=== PATIENT | male | born 1960 | race Caucasian/White ===

== ENCOUNTER 2017-09-04 09:45 | Emergency (ER) | payer OTHER ==
[~2017-09-04] VITALS: Ht 175.3 cm; Wt 92.0 kg
[2017-09-04 09:48] VITALS: BP 179/111; PULSE 80; RESP 16; TEMP 97.8; O2SAT 97
[2017-09-04] MEDS ORDERED: ONDANSETRON HCL 4 MG/2 ML VIAL IVP ONE (10:15)
[2017-09-04] MEDS ORDERED: KETOROLAC TROMETHAMINE 30 MG/ML (IVP) VIAL IVP ONE (10:15)
[2017-09-04] MEDS ORDERED: MORPHINE SULFATE 4 MG/ML INJ IV PUSH ONE (10:15)
[2017-09-04] MEDS ORDERED: SODIUM CHLORIDE 0.9% FLUSH 10 ML FLUSH IV FLUSH PRN (10:15)
[2017-09-04] MEDS ORDERED: SODIUM CHLOR 0.9% 1000 ML INJ 1,000 ML IV SCH (10:15)
--- NOTE | 2017-09-04 10:23 | PD ---
HPI Chief Complaint: Flank/Kidney Pain Time Seen by Provider: 09:59 Travel History International Travel<30 days: No Contact w/Intl Traveler<30days: No Traveled to known affect area: No History of Present Illness HPI The patient is a 57-year-old male who presents emergency department for right flank pain. The patient developed right flank pain this morning that radiates from the right mid back to the right flank and occasionally down to the right lower aspect of the abdomen. He does note nausea and vomiting associated with the pain but denies any diarrhea. He denies any dysuria, frequency, urgency, or hematuria. He denies any precipitating factors, denies any previous history of abdominal surgeries or history of nephrolithiasis. Intensive moderate without any alleviating or exacerbating factors. PFSH Past Medical History Narrative Medical Hyperlipidemia High Cholesterol: Yes Past Surgical History Narrative Surgical Tonsillectomy, surgery second digit right hand Joint Replacement: Yes (right knee, right index finger) Social History Alcohol Use: Yes (whisky nightly) Tobacco Use: No Substance Use: No Allergies-Medications (Allergen,Severity, Reaction): Coded Allergies: No Known Allergies (Unverified , 09/04/17) Reported Meds & Prescriptions Reported Meds & Active Scripts Active Reported Atorvastatin (Atorvastatin Calcium) 20 Mg Tab 20 Mg PO HS Meloxicam 15 Mg Tab 15 Mg PO DAILY Review of Systems Except as stated in HPI: all other systems reviewed are Neg General / Constitutional: No: Fever Cardiovascular: No: Chest Pain or Discomfort Respiratory: No: Shortness of Breath Gastrointestinal: Positive: Nausea, Vomiting, Abdominal Pain, No: Diarrhea Genitourinary: Positive: Flank Pain, No: Urgency, Frequency, Dysuria, Hematuria Skin: No Rash Physical Exam Narrative GENERAL: Awake, alert, pleasant 57-year-old male who appears his stated age and is in no acute respiratory distress. SKIN: Focused skin assessment warm/dry. Multiple tattoos noted. HEAD: Atraumatic. Normocephalic. EYES: Pupils equal and round. No scleral icterus. No injection or drainage. ENT: No nasal bleeding or discharge. Mucous membranes pink and moist. NECK: Trachea midline. No JVD. CARDIOVASCULAR: Regular rate and rhythm. No murmur appreciated. RESPIRATORY: No accessory muscle use. Clear to auscultation. Breath sounds equal bilaterally. GASTROINTESTINAL: Abdomen soft, minimal right lower quadrant and right flank tenderness. Back: No CVA tenderness. MUSCULOSKELETAL: No obvious deformities. No clubbing. No cyanosis. No edema. NEUROLOGICAL: Awake and alert. No obvious cranial nerve deficits. Motor grossly within normal limits. Normal speech. PSYCHIATRIC: Appropriate mood and affect; insight and judgment normal. Data Data Last Documented VS Vital Signs Date Time Temp Pulse Resp B/P (MAP) Pulse Ox O2 Delivery O2 Flow Rate FiO2 09/04/17 09:48 97.8 80 16 179/111 (133) 97 Orders Orders Complete Blood Count With Diff (09/04/17 10:15) Comprehensive Metabolic Panel (09/04/17 10:15) Lipase (09/04/17 10:15) Urinalysis - C+S If Indicated (09/04/17 10:15) Ct Abd/Pel W/O Iv Contrast (09/04/17 10:15) Iv Access Insert/Monitor (09/04/17 10:15) Ecg Monitoring (09/04/17 10:15) Oximetry (09/04/17 10:15) Morphine Inj (Morphine Inj) (09/04/17 10:15) Ondansetron Inj (Zofran Inj) (09/04/17 10:15) Sodium Chlor 0.9% 1000 Ml Inj (Ns 1000 M (09/04/17 10:15) Sodium Chloride 0.9% Flush (Ns Flush) (09/04/17 10:15) Ketorolac Inj (Toradol Inj) (09/04/17 10:15) Labs Laboratory Tests Test 09/04/17 10:11 09/04/17 11:15 White Blood Count 5.6 TH/MM3 Red Blood Count 4.95 MIL/MM3 Hemoglobin 15.0 GM/DL Hematocrit 42.2 % Mean Corpuscular Volume 85.3 FL Mean Corpuscular Hemoglobin 30.3 PG Mean Corpuscular Hemoglobin Concent 35.5 % Red Cell Distribution Width 14.0 % Platelet Count 229 TH/MM3 Mean Platelet Volume 6.9 FL Neutrophils (%) (Auto) 57.1 % Lymphocytes (%) (Auto) 26.1 % Monocytes (%) (Auto) 10.8 % Eosinophils (%) (Auto) 5.1 % Basophils (%) (Auto) 0.9 % Neutrophils # (Auto) 3.2 TH/MM3 Lymphocytes # (Auto) 1.5 TH/MM3 Monocytes # (Auto) 0.6 TH/MM3 Eosinophils # (Auto) 0.3 TH/MM3 Basophils # (Auto) 0.1 TH/MM3 CBC Comment DIFF FINAL Differential Comment Blood Urea Nitrogen 22 MG/DL Creatinine 0.98 MG/DL Random Glucose 104 MG/DL Total Protein 7.2 GM/DL Albumin 4.2 GM/DL Calcium Level 8.9 MG/DL Alkaline Phosphatase 62 U/L Aspartate Amino Transf (AST/SGOT) 25 U/L Alanine Aminotransferase (ALT/SGPT) 35 U/L Total Bilirubin 0.5 MG/DL Sodium Level 140 MEQ/L Potassium Level 3.8 MEQ/L Chloride Level 107 MEQ/L Carbon Dioxide Level 27.5 MEQ/L Anion Gap 6 MEQ/L Estimat Glomerular Filtration Rate 79 ML/MIN Lipase 516 U/L Urine Color YELLOW Urine Turbidity HAZY Urine pH 7.5 Urine Specific [place] 1.015 Urine Protein NEG mg/dL Urine Glucose (UA) NEG mg/dL Urine Ketones NEG mg/dL Urine Occult Blood SMALL Urine Nitrite NEG Urine Bilirubin NEG Urine Urobilinogen LESS THAN 2.0 MG/DL Urine Leukocyte Esterase NEG Urine RBC 17 /hpf Urine WBC 2 /hpf Urine Renal Epithelial Cells <1 /hpf Urine Amorphous Sediment FEW Urine Mucus FEW /lpf Microscopic Urinalysis Comment CULT NOT INDICATED MDM Medical Decision Making Medical Screen Exam Complete: Yes Emergency Medical Condition: Yes Medical Record Reviewed: Yes Interpretation(s) Laboratory Tests Test 09/04/17 10:11 09/04/17 11:15 White Blood Count 5.6 TH/MM3 Red Blood Count 4.95 MIL/MM3 Hemoglobin 15.0 GM/DL Hematocrit 42.2 % Mean Corpuscular Volume 85.3 FL Mean Corpuscular Hemoglobin 30.3 PG Mean Corpuscular Hemoglobin Concent 35.5 % Red Cell Distribution Width 14.0 % Platelet Count 229 TH/MM3 Mean Platelet Volume 6.9 FL Neutrophils (%) (Auto) 57.1 % Lymphocytes (%) (Auto) 26.1 % Monocytes (%) (Auto) 10.8 % Eosinophils (%) (Auto) 5.1 % Basophils (%) (Auto) 0.9 % Neutrophils # (Auto) 3.2 TH/MM3 Lymphocytes # (Auto) 1.5 TH/MM3 Monocytes # (Auto) 0.6 TH/MM3 Eosinophils # (Auto) 0.3 TH/MM3 Basophils # (Auto) 0.1 TH/MM3 CBC Comment DIFF FINAL Differential Comment Blood Urea Nitrogen 22 MG/DL Creatinine 0.98 MG/DL Random Glucose 104 MG/DL Total Protein 7.2 GM/DL Albumin 4.2 GM/DL Calcium Level 8.9 MG/DL Alkaline Phosphatase 62 U/L Aspartate Amino Transf (AST/SGOT) 25 U/L Alanine Aminotransferase (ALT/SGPT) 35 U/L Total Bilirubin 0.5 MG/DL Sodium Level 140 MEQ/L Potassium Level 3.8 MEQ/L Chloride Level 107 MEQ/L Carbon Dioxide Level 27.5 MEQ/L Anion Gap 6 MEQ/L Estimat Glomerular Filtration Rate 79 ML/MIN Lipase 516 U/L Urine Color YELLOW Urine Turbidity HAZY Urine pH 7.5 Urine Specific [place] 1.015 Urine Protein NEG mg/dL Urine Glucose (UA) NEG mg/dL Urine Ketones NEG mg/dL Urine Occult Blood SMALL Urine Nitrite NEG Urine Bilirubin NEG Urine Urobilinogen LESS THAN 2.0 MG/DL Urine Leukocyte Esterase NEG Urine RBC 17 /hpf Urine WBC 2 /hpf Urine Renal Epithelial Cells <1 /hpf Urine Amorphous Sediment FEW Urine Mucus FEW /lpf Microscopic Urinalysis Comment CULT NOT INDICATED CT the abdomen and pelvis reveals right sided obstructive uropathy with mild right hydronephrosis above a 5 mm x 3 mm calculus in the proximal right ureter. Differential Diagnosis Differential diagnoses includes nephrolithiasis, hydronephrosis, pyelonephritis , appendicitis, atypical cholecystitis, diverticulitis, testicular torsion. Narrative Course IV was established, labs are drawn and sent, and the patient was placed on cardiac telemetry monitoring and continuous pulse oximetry monitoring. The patient was administered morphine, Toradol, Zofran, and IV fluids. Noncontrast CT of the abdomen and pelvis was performed to evaluate for right nephrolithiasis. UA reveals 17 RBCs. Creatinine is normal. CT reveals right sided obstructive uropathy with mild right hydronephrosis above a 5 mm x 3 mm calculus in the proximal right ureter. The patient was reevaluated, his pain had improved. The patient we discharged him is advised to follow-up with urology. Pain medications as directed. Return if symptoms worsen or progress. He will be provided a strainer at discharge. Diagnosis Primary Impression: Nephrolithiasis Patient Instructions: General Instructions Additional Instructions: Please provide a strainer for the patient at discharge. Medications as directed. Please provide a patient a copy of his CT results and lab results at discharge. Follow-up with urology. Return if symptoms worsen or progress. Med/Other Pt SpecificInfo: Prescription(s) given Scripts Tamsulosin (Flomax) 0.4 Mg Cap 0.4 MG PO HS for Manage Prostate Problems for 7 Days, #7 CAP 0 Refills Prov: Vicente Funes MD 09/04/17 Ibuprofen (Ibuprofen) 600 Mg Tab 600 MG PO Q6H Y for Pain/Inflammation, #20 TAB 0 Refills Prov: Vicente Funes MD 09/04/17 Hydrocodone-Acetaminophen ([place]) 5 Mg-325 Mg Tab 1 TAB PO Q6H Y for PAIN, #15 TAB 0 Refills Prov: Vicente Funes MD 09/04/17 Disposition: 01 DISCHARGE HOME Condition: Stable Vicente Funes MD Sep 04, 2017 10:23
[2017-09-04] MEDS ORDERED: ATOR20TA15 PO (11:05)
[2017-09-04] MEDS ORDERED: MELO15TA20 PO (11:05)
[2017-09-04 11:20] LABS: AUTOMATED NEUTROPHIL # 3.2 TH/MM3 (1.8-7.7); BASOPHIL # 0.1 TH/MM3 (0-0.2); BASOPHIL % 0.9 % (0.0-2.0); EOSINOPHIL # 0.3 TH/MM3 (0-0.4); EOSINOPHIL % 5.1 % (0.0-4.0); HEMATOCRIT 42.2 % (39.0-51.0); LYMPH % 26.1 % (9.0-44.0); LYMPHOCYTE # 1.5 TH/MM3 (1.0-4.8); MEAN CELL VOLUME 85.3 FL (80.0-100.0); MEAN CORPUSCULAR HEMOGLOBIN 30.3 PG (27.0-34.0); MEAN CORPUSCULAR HGB CONC 35.5 % (32.0-36.0); MEAN PLATELET VOLUME 6.9 FL (7.0-11.0); MONO % 10.8 % (0.0-8.0); MONOCYTE # 0.6 TH/MM3 (0-0.9); NEUT % 57.1 % (16.0-70.0); PLATELET COUNT 229 TH/MM3 (150-450); RED BLOOD COUNT 4.95 MIL/MM3 (4.50-5.90); WHITE BLOOD COUNT 5.6 TH/MM3 (4.0-11.0)
[2017-09-04 11:47] LABS: ALBUMIN 4.2 GM/DL (3.4-5.0); ALT (GPT) 35 U/L (12-78); AST (GOT) 25 U/L (15-37); BICARBONATE 27.5 MEQ/L (21.0-32.0); BLOOD UREA NITROGEN 22 MG/DL (7-18); CALCIUM 8.9 MG/DL (8.5-10.1); CHLORIDE 107 MEQ/L (98-107); CREATININE 0.98 MG/DL (0.60-1.30); GLOMERULAR FILTRATION RATE 79 ML/MIN (>89); GLUCOSE,RANDOM 104 MG/DL (74-106); LIPASE 516 U/L (73-393); SODIUM (NA) 140 MEQ/L (136-145)
[2017-09-04 11:49] LABS: ALKALINE PHOSPHATASE 62 U/L (45-117); TOTAL BILIRUBIN ADULT 0.5 MG/DL (0.2-1.0); TOTAL PROTEIN 7.2 GM/DL (6.4-8.2)
[2017-09-04 12:02] LABS: AMORPHOUS SEDIMENT, URINE FEW; BILIRUBIN, URINE NEG (NEG); BLOOD, URINE SMALL (NEG); GLUCOSE,URINE NEG (NEG); KETONE, URINE NEG (NEG); MUCUS URINE FEW /lpf (OCC); NITRITE,URINE NEG (NEG); PH, URINE 7.5 (5.0-8.5); RENAL EPITHELIAL CELLS <1 /hpf; URINE COLOR YELLOW (YELLW/STRAW); URINE LEUKOCYTE ESTERASE NEG (NEG)
--- NOTE | 2017-09-04 12:14 | RADRPT ---
EXAM DATE/TIME: 09/04/2017 10:29 [facility] COMPARISON: No previous studies available for comparison. INDICATIONS : Right flank pain since last night . Evaluate for renal stone. ORAL CONTRAST: No oral contrast ingested. RADIATION DOSE: 15.23 CTDIvol (mGy) MEDICAL HISTORY : None SURGICAL HISTORY : None. ENCOUNTER: Initial ACUITY: 1 day PAIN SCALE: 4/10 LOCATION: Right flank TECHNIQUE: Volumetric scanning of the abdomen and pelvis was performed. Using automated exposure control and ad justment of the mA and/or kV according to patient size, radiation dose was kept as low as reasonably achievable to obtain optimal diagnostic quality images. DICOM format image data is available electro nically for review and comparison. FINDINGS: Mild dependent atelectasis of the lungs. No acute findings in the liver, spleen, adrenals or pancreas . There is mild right-sided hydronephrosis and obstructive uropathy above approximately 5 mm x 3 mm c alculus in the proximal right ureter. Additional bilateral renal cysts present. No left hydronephrosi s or obstructive uropathy. No bladder calculi. No bowel obstruction, free air or free fluid. No acute bony abnormality CONCLUSION: 1. Right-sided obstructive uropathy with mild right hydronephrosis above a 5 mm x 3 mm calculus in th e proximal right ureter. Angel Vicente MD on September 04, 2017 at 12:06 Board Certified Radiologist. This report was verified electronically.
[2017-09-04] MEDS ORDERED: NORC5TAB PO (12:36)
[2017-09-04] MEDS ORDERED: IBUP-232 PO (12:36)
[2017-09-04] MEDS ORDERED: TAMS5CAP PO (12:36)
== END 2017-09-04 13:03 | disposition home or self-care (01) ==
LOC: NEPE 09:45
DX: N13.2 Hydronephrosis with renal and ureteral calculous obstruction (principal); E78.00 Pure hypercholesterolemia, unspecified
CPT/HCPCS: 74176; 80053; 81001; 83690; 85025; 96374; 96375; 99285; J1885; J2270; J2405; J7030

== ENCOUNTER 2017-09-25 22:00 | Emergency (ER) | payer OTHER ==
[~2017-09-25 22:00] MED LIST: ATOR20TA15 PO; IBUP-232 PO; MELO15TA20 PO; NORC5TAB PO; TAMS5CAP PO
[2017-09-25 22:02] VITALS: BP 185/115; PULSE 83; RESP 16; TEMP 97.8; O2SAT 98
[2017-09-25] MEDS ORDERED: SODIUM CHLOR 0.9% 1000 ML INJ 1,000 ML IV SCH (22:20)
[2017-09-25] MEDS ORDERED: ONDANSETRON HCL 4 MG/2 ML VIAL IVP ONE (22:30)
[2017-09-25] MEDS ORDERED: SODIUM CHLORIDE 0.9% FLUSH 10 ML FLUSH IV FLUSH PRN (22:30)
[2017-09-25] MEDS ORDERED: KETOROLAC TROMETHAMINE 30 MG/ML (IVP) VIAL IVP ONE (22:30)
--- NOTE | 2017-09-25 22:34 | PD ---
HPI Chief Complaint: Abdominal Pain Time Seen by Provider: 22:14 Travel History International Travel<30 days: No Contact w/Intl Traveler<30days: No Traveled to known affect area: No History of Present Illness HPI 57-year-old white male presents to emergency department with complaints of abdominal and right flank pain which started earlier this evening. Patient states that he was diagnosed on the 12th of last month with a right nephrolithiasis. He did not follow-up with urology. He states that his pain improved. He states now the pain seems similar again. He admits to nausea vomiting and feeling upset. He initially thought he may have had something that may have been bad but now is localizing to his right flank. He states that this is reminiscent of his kidney stone. He denies any fever or chills. No cough or congestion. No dysuria, frequency, hematuria. No melena or hematochezia. No diarrhea. Patient states the pain is moderate but can be severe at times. No alleviating factors. No exacerbating factor. PFSH Past Medical History Narrative Medical Hypercholesterolemia, right nephrolithiasis High Cholesterol: Yes Immunizations Current: Yes Past Surgical History Joint Replacement: Yes (right knee, right index finger) Social History Alcohol Use: Yes Tobacco Use: No Substance Use: No Allergies-Medications (Allergen,Severity, Reaction): Coded Allergies: No Known Allergies (Unverified , 09/04/17) Reported Meds & Prescriptions Reported Meds & Active Scripts Active Flomax (Tamsulosin HCl) 0.4 Mg Cap 0.4 Mg PO HS 7 Days Ibuprofen 600 Mg Tab 600 Mg PO Q6H PRN [place] (Hydrocodone-Acetaminophen) 5 Mg-325 Mg Tab 1 Tab PO Q6H PRN Reported Atorvastatin (Atorvastatin Calcium) 20 Mg Tab 20 Mg PO HS Meloxicam 15 Mg Tab 15 Mg PO DAILY Review of Systems Except as stated in HPI: all other systems reviewed are Neg Physical Exam Narrative GENERAL: Well-developed, well-nourished in no apparent distress. Nontoxic but uncomfortable appearing. HEAD: Normocephalic, atraumatic. EYES: Pupils equal round and reactive. Extraocular motions intact. No scleral icterus. No injection or drainage. ENT: Nose clear. Throat without erythema, tonsillar hypertrophy or exudate. Uvula midline. Airway patent. NECK: Trachea midline. Supple, nontender, moves head freely. No central bony tenderness or spasm. CARDIOVASCULAR: Regular rate and rhythm without murmurs, gallops, or rubs. RESPIRATORY: Clear to auscultation. Breath sounds equal bilaterally. No wheezes , rales, or rhonchi. GASTROINTESTINAL: Abdomen soft, non-tender, nondistended. No hepato-splenomegaly , or palpable masses. No guarding. EXTREMITIES: No clubbing, cyanosis, or edema. No joint tenderness. BACK: Nontender without deformity. No flank tenderness. NEUROLOGICAL: Awake, alert and oriented x 3 .Cranial nerves grossly intact. Motor and sensory grossly within normal limits. Normal speech. Data Data Last Documented VS Vital Signs Date Time Temp Pulse Resp B/P (MAP) Pulse Ox O2 Delivery O2 Flow Rate FiO2 09/25/17 22:02 97.8 83 16 185/115 (138) 98 Room Air Orders Orders Basic Metabolic Panel (Bmp) (09/25/17 22:20) Ua Includes Microscopic (09/25/17 22:20) Iv Access Insert/Monitor (09/25/17 22:20) Ondansetron Inj (Zofran Inj) (09/25/17 22:30) Sodium Chlor 0.9% 1000 Ml Inj (Ns 1000 M (09/25/17 22:20) Sodium Chloride 0.9% Flush (Ns Flush) (09/25/17 22:30) Ketorolac Inj (Toradol Inj) (09/25/17 22:30) Fentanyl Inj (Fentanyl Inj) (09/25/17 22:30) Us Kidney/Renal/Bladder (09/25/17 22:24) MDM Medical Decision Making Medical Screen Exam Complete: Yes Emergency Medical Condition: Yes Medical Record Reviewed: Yes Differential Diagnosis MDM: High Differential diagnoses: Acute appendicitis, acute pancreatitis, diverticulitis, hepatitis, colitis, ischemic bowel, bowel instruction, nonspecific abdominal pain, gastroparesis, electrolyte abnormality, dehydration, drug-seeking, malingering Narrative Course IV access is obtained. Patient's given a liter bolus of normal saline, Toradol 31 g IV, fentanyl 50 g IV, Zofran 4 mg IV. Ultrasound of the kidneys have been ordered. Condition: Stable Angel Mueller Sep 25, 2017 22:34
--- NOTE | 2017-09-25 23:13 | RADRPT ---
EXAM DATE/TIME: 09/25/2017 22:41 [facility] COMPARISON: CT ABDOMEN & PELVIS W/O CONTRAST, September 04, 2017, 10:29. INDICATIONS : Obstruction. MEDICAL HISTORY : Hypercholesterolemia. SURGICAL HISTORY : Right knee replacement. Right index finger surgery. ENCOUNTER: Initial ACUITY: 1 day PAIN SCORE: 7/10 LOCATION: Bilateral flank MEASUREMENTS: RIGHT KIDNEY: 11.3 x 5.0 x 6.4 cm LEFT KIDNEY: 13.5 x 4.0 x 6.1 cm FINDINGS: RIGHT KIDNEY: 1.5 cm cyst mid pole medially. 6 mm echogenic focus at the midpole may reflect a small nonobstructing stone. LEFT KIDNEY: 4 cm simple cyst of the left lower pole medially. Also noted is a 2.2 cm simple cyst at the left midp ole. BLADDER: 4 mm echogenic focus at the expected location of the right ureterovesical junction consistent with a calculus. CONCLUSION: Right UVJ calculus. No hydronephrosis. Renal cysts and probable tiny right renal nonobstructing stone . Mann Baird MD on September 25, 2017 at 23:08 Board Certified Radiologist. This report was verified electronically.
[2017-09-25 23:23] LABS: BICARBONATE 28.8 MEQ/L (21.0-32.0); CREATININE 1.02 MG/DL (0.60-1.30)
[2017-09-25 23:41] LABS: BILIRUBIN, URINE NEG (NEG); BLOOD, URINE TRACE (NEG); GLUCOSE,URINE NEG (NEG); KETONE, URINE NEG (NEG); MUCUS URINE FEW /lpf (OCC); NITRITE,URINE NEG (NEG); URINE COLOR LIGHT-YELLOW (YELLW/STRAW); URINE LEUKOCYTE ESTERASE NEG (NEG)
[2017-09-26] MEDS ORDERED: SODIUM CHLOR 0.9% 1000 ML INJ 1,000 ML IV ONE (00:15)
[2017-09-26 00:20] LABS: AUTOMATED NEUTROPHIL # 6.1 TH/MM3 (1.8-7.7); BASOPHIL % 0.5 % (0.0-2.0); EOSINOPHIL # 0.4 TH/MM3 (0-0.4); EOSINOPHIL % 4.5 % (0.0-4.0); HEMATOCRIT 43.7 % (39.0-51.0); HEMOGLOBIN 15.2 GM/DL (13.0-17.0); LYMPHOCYTE # 1.1 TH/MM3 (1.0-4.8); MEAN CELL VOLUME 84.1 FL (80.0-100.0); MEAN CORPUSCULAR HEMOGLOBIN 29.3 PG (27.0-34.0); MEAN CORPUSCULAR HGB CONC 34.8 % (32.0-36.0); MEAN PLATELET VOLUME 6.9 FL (7.0-11.0); MONO % 8.8 % (0.0-8.0); MONOCYTE # 0.7 TH/MM3 (0-0.9); NEUT % 73.2 % (16.0-70.0); PLATELET COUNT 234 TH/MM3 (150-450); RED BLOOD COUNT 5.19 MIL/MM3 (4.50-5.90); RED CELL DISTRIBUTION WIDTH 13.5 % (11.6-17.2); WHITE BLOOD COUNT 8.4 TH/MM3 (4.0-11.0)
[2017-09-26] MEDS ORDERED: IOHEXOL 350 MG/ML 10 ML VIAL (for RAD DIAG) IVCONTRAST ONE (00:31)
--- NOTE | 2017-09-26 00:40 | RADRPT ---
EXAM DATE/TIME: 09/26/2017 00:29 [facility] COMPARISON: US KIDNEY/RENAL/BLADDER, September 25, 2017, 22:41. CT ABDOMEN & PELVIS W/O CONTRAST, September 04 8, 10:29. INDICATIONS : Abdominal pain. IV CONTRAST: 97 cc Omnipaque 350 (iohexol) IV ORAL CONTRAST: No oral contrast ingested. RADIATION DOSE: 7.84 CTDIvol (mGy) MEDICAL HISTORY : None SURGICAL HISTORY : None. ENCOUNTER: Initial ACUITY: 1 day PAIN SCALE: 9/10 LOCATION: Bilateral abdomen TECHNIQUE: Volumetric scanning of the abdomen and pelvis was performed. Using automated exposure control and ad justment of the mA and/or kV according to patient size, radiation dose was kept as low as reasonably achievable to obtain optimal diagnostic quality images. DICOM format image data is available electro nically for review and comparison. FINDINGS: Lung bases are clear. There are degenerative changes of the spine noted. No pleural or pericardial ef fusions are seen. Liver, gallbladder, spleen, pancreas, adrenal glands are unremarkable. There is a c yst at the midpole left kidney measuring 2.6 cm anteriorly. There is also a small cortical cyst measu ring 1.1 cm at the midpole posteriorly. Left lower pole demonstrates a 4.5 cm simple cyst. There is a cyst at the lower pole of right kidney measuring 1.5 cm. The results of a cyst at the midpole measur ing 1.4 cm. There is perinephric stranding surrounding the right kidney. There are no right-sided rusty al calculi identified. There is mild right ureteral dilatation noted, and there is a calculus identif ied within the bladder just beyond the ureterovesical junction on the right measuring 5.6 mm. This co rresponds to the echogenic focus noted on the ultrasound. Small bowel, large bowel, stomach, appendix unremarkable. CONCLUSION: There is a calculus within the urinary bladder just beyond the ureterovesical junction on the right. There is mild right-sided hydroureter and right-sided perinephric stranding. Bilateral renal cysts. Mann Baird MD on September 26, 2017 at 0:36 Board Certified Radiologist. This report was verified electronically.
[2017-09-26 01:00] VITALS: PULSE 85; RESP 16; O2SAT 99
== END 2017-09-26 01:17 | disposition home or self-care (01) ==
LOC: NEPD 22:00
DX: Z87.442 Personal history of urinary calculi (principal); E78.00 Pure hypercholesterolemia, unspecified
CPT/HCPCS: 74177; 76775; 80048; 81001; 85025; 96361; 96374; 96375; 99285; J1885; J2405; J3010; J7030; Q9967

== ENCOUNTER 2017-11-11 21:14 | Emergency (ER) | payer OTHER | END 2017-11-11 21:48 | disposition left against medical advice (07) | LOC: NED 21:14 | DX: M25.561 Pain in right knee (principal); Z53.21 Procedure and treatment not carried out due to patient leaving prior to being seen by health care provider | CPT/HCPCS: 99281 ==

== ENCOUNTER 2018-01-11 15:38 | Emergency (ER) | payer OTHER ==
[~2018-01-11] VITALS: Ht 175.3 cm; Wt 95.0 kg
[2018-01-11 16:27] VITALS: BP 156/104; PULSE 71; RESP 20; TEMP 98.1; O2SAT 98
[2018-01-11 16:40] VITALS: BP 167/113; PULSE 71; RESP 18; O2SAT 98
[2018-01-11] MEDS ORDERED: MORPHINE SULFATE 4 MG/ML INJ IV PUSH ONE (16:45)
[2018-01-11] MEDS ORDERED: SODIUM CHLORIDE 0.9% FLUSH 10 ML FLUSH IVF PRN (16:45)
[2018-01-11] MEDS ORDERED: SODIUM CHLOR 0.9% 1000 ML INJ 1,000 ML IV ONE (16:45)
[2018-01-11] MEDS ORDERED: KETOROLAC TROMETHAMINE 30 MG/ML (IVP) VIAL IV PUSH ONE (16:45)
[2018-01-11] MEDS ORDERED: ONDANSETRON HCL 4 MG/2 ML VIAL IV PUSH ONE (16:45)
[2018-01-11 16:58] LABS: BILIRUBIN, URINE NEG (NEG); BLOOD, URINE NEG (NEG); GLUCOSE,URINE NEG (NEG); KETONE, URINE NEG (NEG); NITRITE,URINE NEG (NEG); URINE COLOR YELLOW (YELLW/STRAW); URINE LEUKOCYTE ESTERASE NEG (NEG)
--- NOTE | 2018-01-11 16:58 | PD ---
HPI Chief Complaint: Flank/Kidney Pain Time Seen by Provider: 16:37 Travel History International Travel<30 days: No Contact w/Intl Traveler<30days: No Traveled to known affect area: No History of Present Illness HPI 57-year-old male presents to the emergency department for evaluation of left flank pain since this morning. He states the pain is 8/10, sharp and throbbing without radiation. He reports history of nephrolithiasis. He states last time it was on the right side. Patient denies any fevers or chills. No chest pain or shortness of breath. He reports nausea, no vomiting. No diarrhea or constipation. He denies any abdominal pain. He has history of hyperlipidemia. He states that he lays still, it will help the pain. If he moves it well worsen the pain. Moderate severity. PFSH Past Medical History High Cholesterol: Yes Kidney Stones: Yes Immunizations Current: Yes Past Surgical History Joint Replacement: Yes (right knee, right index finger) Social History Alcohol Use: Yes Tobacco Use: No Substance Use: No Allergies-Medications (Allergen,Severity, Reaction): Coded Allergies: No Known Allergies (Unverified , 09/04/17) Reported Meds & Prescriptions Reported Meds & Active Scripts Active Flomax (Tamsulosin HCl) 0.4 Mg Cap 0.4 Mg PO HS 7 Days Ibuprofen 600 Mg Tab 600 Mg PO Q6H PRN Philip (Hydrocodone-Acetaminophen) 5 Mg-325 Mg Tab 1 Tab PO Q6H PRN Reported Atorvastatin (Atorvastatin Calcium) 20 Mg Tab 20 Mg PO HS Meloxicam 15 Mg Tab 15 Mg PO DAILY Review of Systems Except as stated in HPI: all other systems reviewed are Neg Physical Exam Narrative GENERAL: Well-nourished, well-developed male patient, afebrile. SKIN: Focused skin assessment warm/dry. HEAD: Normocephalic. Atraumatic EYES: No scleral icterus. No injection or drainage. NECK: Supple, trachea midline. No JVD or lymphadenopathy. CARDIOVASCULAR: Regular rate and rhythm without murmurs, gallops, or rubs. RESPIRATORY: Breath sounds equal bilaterally. No accessory muscle use. Lung sounds are clear to auscultation. GASTROINTESTINAL: Abdomen soft, non-tender, nondistended. MUSCULOSKELETAL: No cyanosis, or edema. BACK: Nontender without obvious deformity. Left CVA tenderness. Data Data Last Documented VS Vital Signs Date Time Temp Pulse Resp B/P (MAP) Pulse Ox O2 Delivery O2 Flow Rate FiO2 01/11/18 16:40 71 18 167/113 (131) 98 Room Air 01/11/18 16:27 98.1 Orders Orders Complete Blood Count With Diff (01/11/18 16:45) Comprehensive Metabolic Panel (01/11/18 16:45) Urinalysis - C+S If Indicated (01/11/18 16:45) Ct Abd/Pel W/O Iv Contrast (01/11/18 16:45) Ecg Monitoring (01/11/18 16:45) Iv Access Insert/Monitor (01/11/18 16:45) Ketorolac Inj (Toradol Inj) (01/11/18 16:45) Morphine Inj (Morphine Inj) (01/11/18 16:45) Ondansetron Inj (Zofran Inj) (01/11/18 16:45) Sodium Chloride 0.9% Flush (Ns Flush) (01/11/18 16:45) Sodium Chlor 0.9% 1000 Ml Inj (Ns 1000 M (01/11/18 16:45) Metoclopramide Inj (Reglan Inj) (01/11/18 17:00) Methocarbamol (Robaxin) (01/11/18 18:00) Labs Laboratory Tests Test 01/11/18 16:50 White Blood Count 5.6 TH/MM3 Red Blood Count 5.33 MIL/MM3 Hemoglobin 15.3 GM/DL Hematocrit 45.3 % Mean Corpuscular Volume 84.9 FL Mean Corpuscular Hemoglobin 28.6 PG Mean Corpuscular Hemoglobin Concent 33.7 % Red Cell Distribution Width 13.8 % Platelet Count 232 TH/MM3 Mean Platelet Volume 7.0 FL Neutrophils (%) (Auto) 61.3 % Lymphocytes (%) (Auto) 21.2 % Monocytes (%) (Auto) 10.4 % Eosinophils (%) (Auto) 6.0 % Basophils (%) (Auto) 1.1 % Neutrophils # (Auto) 3.4 TH/MM3 Lymphocytes # (Auto) 1.2 TH/MM3 Monocytes # (Auto) 0.6 TH/MM3 Eosinophils # (Auto) 0.3 TH/MM3 Basophils # (Auto) 0.1 TH/MM3 CBC Comment DIFF FINAL Differential Comment Urine Color YELLOW Urine Turbidity CLEAR Urine pH 7.0 Urine Specific [place] 1.013 Urine Protein NEG mg/dL Urine Glucose (UA) NEG mg/dL Urine Ketones NEG mg/dL Urine Occult Blood NEG Urine Nitrite NEG Urine Bilirubin NEG Urine Urobilinogen 0.2 MG/DL Urine Leukocyte Esterase NEG Urine RBC 1 /hpf Urine WBC 1 /hpf Urine Amorphous Sediment RARE Microscopic Urinalysis Comment CULT NOT INDICATED Blood Urea Nitrogen 18 MG/DL Creatinine 0.92 MG/DL Random Glucose 88 MG/DL Total Protein 7.2 GM/DL Albumin 4.0 GM/DL Calcium Level 8.7 MG/DL Alkaline Phosphatase 64 U/L Aspartate Amino Transf (AST/SGOT) 20 U/L Alanine Aminotransferase (ALT/SGPT) 29 U/L Total Bilirubin 0.5 MG/DL Sodium Level 140 MEQ/L Potassium Level 3.6 MEQ/L Chloride Level 104 MEQ/L Carbon Dioxide Level 28.8 MEQ/L Anion Gap 7 MEQ/L Estimat Glomerular Filtration Rate 85 ML/MIN MDM Medical Decision Making Medical Screen Exam Complete: Yes Emergency Medical Condition: Yes Medical Record Reviewed: Yes Differential Diagnosis Nephrolithiasis versus pyelonephritis versus UTI versus muscle strain versus muscle spasm Narrative Course 57-year-old male presents to the emergency department for evaluation of the left flank pain with history of kidney stones. IV access established. CBC, CMP , UA, CT of the/pelvis without contrast is ordered and pending. Patient is given normal saline 1 L IV bolus, morphine 4 mg IV, Reglan 10 mg IV, Toradol 30 mg IV. CBC shows no acute abnormality. CMP is unremarkable. UA is negative. CT abdomen/pelvis shows tiny nonobstructing kidney stones bilaterally, bilateral renal cyst, no evidence of ureteral stone or hydronephrosis. Imaging and labs are reassuring. Patient will be discharged with a prescription for ibuprofen. He is also requesting muscle relaxant. This will be given. Patient is to follow with her primary care physician return here for any acute worsening of symptoms. The patient was discharged in stable condition with instructions, including return instructions and follow up instructions. Diagnosis Primary Impression: Low back pain Qualified Codes: M54.5 - Low back pain Referrals: Primary Care Physician call for appointment Patient Instructions: Acute Low Back Pain (ED), General Instructions Additional Instructions: Take ibuprofen as directed as needed with food for pain. Take Robaxin as directed as needed. Follow-up with a primary care physician. Return to the emergency department for any acute worsening of symptoms. Med/Other Pt SpecificInfo: Prescription(s) given Scripts Methocarbamol (Robaxin) 750 Mg Tab 750 MG PO TID Y for MUSCLE SPASM, #21 TAB 0 Refills Prov: Nadeen Santo 01/11/18 Ibuprofen (Ibuprofen) 800 Mg Tab 800 MG PO TID Y for PAIN SCALE 1 TO 10, #21 TAB 0 Refills Prov: Nadeen Santo 01/11/18 Disposition: 01 DISCHARGE HOME Condition: Stable Nadeen Santo January 11, 2018 16:58
[2018-01-11 16:59] LABS: AMORPHOUS SEDIMENT, URINE RARE
[2018-01-11] MEDS ORDERED: METOCLOPRAMIDE HCL 10 MG/2 ML VIAL IV PUSH ONE (17:00)
[2018-01-11 17:07] LABS: AUTOMATED NEUTROPHIL # 3.4 TH/MM3 (1.8-7.7); BASOPHIL # 0.1 TH/MM3 (0-0.2); BASOPHIL % 1.1 % (0.0-2.0); EOSINOPHIL # 0.3 TH/MM3 (0-0.4); HEMATOCRIT 45.3 % (39.0-51.0); HEMOGLOBIN 15.3 GM/DL (13.0-17.0); LYMPH % 21.2 % (9.0-44.0); LYMPHOCYTE # 1.2 TH/MM3 (1.0-4.8); MEAN CELL VOLUME 84.9 FL (80.0-100.0); MEAN CORPUSCULAR HEMOGLOBIN 28.6 PG (27.0-34.0); MEAN CORPUSCULAR HGB CONC 33.7 % (32.0-36.0); MONO % 10.4 % (0.0-8.0); MONOCYTE # 0.6 TH/MM3 (0-0.9); NEUT % 61.3 % (16.0-70.0); PLATELET COUNT 232 TH/MM3 (150-450); RED BLOOD COUNT 5.33 MIL/MM3 (4.50-5.90); RED CELL DISTRIBUTION WIDTH 13.8 % (11.6-17.2); WHITE BLOOD COUNT 5.6 TH/MM3 (4.0-11.0)
[2018-01-11 17:25] LABS: AST (GOT) 20 U/L (15-37); BICARBONATE 28.8 MEQ/L (21.0-32.0); BLOOD UREA NITROGEN 18 MG/DL (7-18); CALCIUM 8.7 MG/DL (8.5-10.1); CHLORIDE 104 MEQ/L (98-107); CREATININE 0.92 MG/DL (0.60-1.30); GLOMERULAR FILTRATION RATE 85 ML/MIN (>89); GLUCOSE,RANDOM 88 MG/DL (74-106); SODIUM (NA) 140 MEQ/L (136-145)
[2018-01-11 17:28] LABS: ALKALINE PHOSPHATASE 64 U/L (45-117); ALT (GPT) 29 U/L (12-78); TOTAL BILIRUBIN ADULT 0.5 MG/DL (0.2-1.0); TOTAL PROTEIN 7.2 GM/DL (6.4-8.2)
--- NOTE | 2018-01-11 17:40 | RADRPT ---
EXAM DATE/TIME: 01/11/2018 17:10 [facility] COMPARISON: No previous studies available for comparison. INDICATIONS : Left flank pain ORAL CONTRAST: No oral contrast ingested. RADIATION DOSE: 11.60 CTDIvol (mGy) MEDICAL HISTORY : Renal calculi. SURGICAL HISTORY : None. ENCOUNTER: Initial ACUITY: 1 day PAIN SCALE: 8/10 LOCATION: Left Abdomen TECHNIQUE: Volumetric scanning of the abdomen and pelvis was performed. Using automated exposure control and ad justment of the mA and/or kV according to patient size, radiation dose was kept as low as reasonably achievable to obtain optimal diagnostic quality images. DICOM format image data is available electro nically for review and comparison. FINDINGS: LOWER LUNGS: The visualized lower lungs are clear. LIVER: Homogeneous density without lesion. There is no dilation of the biliary tree. No calcified gallston es. SPLEEN: Normal size without lesion. PANCREAS: Within normal limits. KIDNEYS: Miniscule bilateral nonobstructing kidney stones with a small stone in the upper pole collecting syst em on the left in the lower pole collecting system on the right. Bilateral cortical cysts, largest a 4.8 cm cyst involving the lower pole cortex of the left kidney. ADRENAL GLANDS: Within normal limits. VASCULAR: There is no aortic aneurysm. BOWEL/MESENTERY: The stomach, small bowel, and colon demonstrate no acute abnormality. There is no free intraperitone al air or fluid. ABDOMINAL WALL: Within normal limits. RETROPERITONEUM: There is no lymphadenopathy. BLADDER: No wall thickening or mass. REPRODUCTIVE: Within normal limits. INGUINAL: There is no lymphadenopathy or hernia. MUSCULOSKELETAL: Within normal limits for patient age. CONCLUSION: Tiny nonobstructing kidney stones bilaterally. Bilateral renal cysts. No evidence of ureteral stone o r hydronephrosis Babatunde Aquino MD on January 11, 2018 at 17:34 Board Certified Radiologist. This report was verified electronically.
--- NOTE | 2018-01-11 17:51 | PD ---
Data Data Last Documented VS Vital Signs Date Time Temp Pulse Resp B/P (MAP) Pulse Ox O2 Delivery O2 Flow Rate FiO2 01/11/18 16:40 71 18 167/113 (131) 98 Room Air 01/11/18 16:27 98.1 Orders Orders Complete Blood Count With Diff (01/11/18 16:45) Comprehensive Metabolic Panel (01/11/18 16:45) Urinalysis - C+S If Indicated (01/11/18 16:45) Ct Abd/Pel W/O Iv Contrast (01/11/18 16:45) Ecg Monitoring (01/11/18 16:45) Iv Access Insert/Monitor (01/11/18 16:45) Ketorolac Inj (Toradol Inj) (01/11/18 16:45) Morphine Inj (Morphine Inj) (01/11/18 16:45) Ondansetron Inj (Zofran Inj) (01/11/18 16:45) Sodium Chloride 0.9% Flush (Ns Flush) (01/11/18 16:45) Sodium Chlor 0.9% 1000 Ml Inj (Ns 1000 M (01/11/18 16:45) Metoclopramide Inj (Reglan Inj) (01/11/18 17:00) Labs Laboratory Tests Test 01/11/18 16:50 White Blood Count 5.6 TH/MM3 Red Blood Count 5.33 MIL/MM3 Hemoglobin 15.3 GM/DL Hematocrit 45.3 % Mean Corpuscular Volume 84.9 FL Mean Corpuscular Hemoglobin 28.6 PG Mean Corpuscular Hemoglobin Concent 33.7 % Red Cell Distribution Width 13.8 % Platelet Count 232 TH/MM3 Mean Platelet Volume 7.0 FL Neutrophils (%) (Auto) 61.3 % Lymphocytes (%) (Auto) 21.2 % Monocytes (%) (Auto) 10.4 % Eosinophils (%) (Auto) 6.0 % Basophils (%) (Auto) 1.1 % Neutrophils # (Auto) 3.4 TH/MM3 Lymphocytes # (Auto) 1.2 TH/MM3 Monocytes # (Auto) 0.6 TH/MM3 Eosinophils # (Auto) 0.3 TH/MM3 Basophils # (Auto) 0.1 TH/MM3 CBC Comment DIFF FINAL Differential Comment Urine Color YELLOW Urine Turbidity CLEAR Urine pH 7.0 Urine Specific [place] 1.013 Urine Protein NEG mg/dL Urine Glucose (UA) NEG mg/dL Urine Ketones NEG mg/dL Urine Occult Blood NEG Urine Nitrite NEG Urine Bilirubin NEG Urine Urobilinogen 0.2 MG/DL Urine Leukocyte Esterase NEG Urine RBC 1 /hpf Urine WBC 1 /hpf Urine Amorphous Sediment RARE Microscopic Urinalysis Comment CULT NOT INDICATED Blood Urea Nitrogen 18 MG/DL Creatinine 0.92 MG/DL Random Glucose 88 MG/DL Total Protein 7.2 GM/DL Albumin 4.0 GM/DL Calcium Level 8.7 MG/DL Alkaline Phosphatase 64 U/L Aspartate Amino Transf (AST/SGOT) 20 U/L Alanine Aminotransferase (ALT/SGPT) 29 U/L Total Bilirubin 0.5 MG/DL Sodium Level 140 MEQ/L Potassium Level 3.6 MEQ/L Chloride Level 104 MEQ/L Carbon Dioxide Level 28.8 MEQ/L Anion Gap 7 MEQ/L Estimat Glomerular Filtration Rate 85 ML/MIN MDM Supervised Visit with MARTY: Yes Narrative Course I, Dr. Gan, have reviewed the advance practice practitioner's documentation and am in agreement, met with the patient face to face, made the diagnosis, and the medical decision making was done by me. *My assessment and Findings: Patient had extensive workup which is negative. Etiology of his back discomfort is unclear. I believe his tiny nonobstructing stones are incidental findings. Labs and urine are clean. There is been no injury. He denies sciatic radiation. Stable for outpatient follow-up. Jimmy Gan MD January 11, 2018 17:51
[2018-01-11] MEDS ORDERED: IBUP1TAB7 PO (17:55)
[2018-01-11] MEDS ORDERED: ROBA750T PO (17:55)
[2018-01-11] MEDS ORDERED: METHOCARBAMOL 500 MG TAB PO ONE (18:00)
== END 2018-01-11 18:09 | disposition home or self-care (01) ==
LOC: NEPC 15:38
DX: M54.5 Low back pain (principal); E78.00 Pure hypercholesterolemia, unspecified
CPT/HCPCS: 74176; 80053; 81001; 85025; 96374; 96375; 99284; J1885; J2270; J2765; J7030